=== PATIENT | female | born 1985 | race Caucasian/White ===

== ENCOUNTER 2017-10-16 21:24 | Emergency (ER) | payer MEDICAID ==
[~2017-10-16] VITALS: Ht 154.9 cm; Wt 68.0 kg
[2017-10-17] MEDS ORDERED: ACETAMINOPHEN 500MG TABLET PO ONE (00:30)
[2017-10-17 00:55] LABS: BASOPHILS % 0.3 % (0.0-2.0); EOSINOPHILS % 2.1 % (0.0-5.0); HEMATOCRIT. 40.7 % (36.0-48.0); HEMOGLOBIN. 13.4 g/dL (12.0-16.0); LYMPHOCYTES % 12.5 % (20.0-50.0); MEAN CORPUSCULAR HEMOGLOBIN 28.2 pg (28.0-32.0); MEAN CORPUSCULAR VOLUME 85.5 fL (81.0-99.0); MEAN PLATELET VOLUME 8.6 fl (7.4-10.4); MONOCYTES % 5.3 % (2.0-8.0); NEUTROPHILS % 79.8 % (40.0-76.0); PLATELET 220 x1000/uL (130-400); RED BLOOD CELL COUNT 4.76 mill/uL (4.2-5.4); RED CELL DISTRIBUTION WIDTH 14.8 % (11.6-14.6)
[2017-10-17 02:30] VITALS: BP 118/68
== END 2017-10-17 03:14 | disposition home or self-care (01) ==
LOC: ER 21:24
DX: K64.9 Unspecified hemorrhoids (principal)
CPT/HCPCS: 36415; 85025; 99283

== ENCOUNTER 2019-03-17 23:58 | Emergency (ER) | payer MEDICAID ==
[~2019-03-17] VITALS: Ht 165.1 cm; Wt 67.0 kg
[2019-03-18] MEDS ORDERED: VISCOUS LIDOCAINE 2% 15 ML UDC MM STA (02:46)
[2019-03-18 04:43] VITALS: BP 130/70
== END 2019-03-18 04:43 | disposition home or self-care (01) ==
LOC: ER 23:58
DX: J02.9 Acute pharyngitis, unspecified (principal); Z98.890 Other specified postprocedural states
CPT/HCPCS: 87070; 87430; 99283

== ENCOUNTER 2020-04-01 19:04 | Emergency (ER) | payer MEDICAID ==
[~2020-04-01] VITALS: Ht 154.9 cm; Wt 73.0 kg
[2020-04-01 19:07] VITALS: BP 125/71
[2020-04-01] MEDS ORDERED: ERYTHROMYCIN BASE 0.5% OPHTH OINT 3.5GM LEFTEYE ONE (21:30)
[2020-04-01] MEDS ORDERED: FLUORESCEIN SODIUM 1MG/STRIP LEFTEYE ONE (21:30)
[2020-04-01] MEDS ORDERED: TETRACAINE 0.5% OPHTH DROPS 4ML LEFTEYE ONE (21:30)
== END 2020-04-01 22:55 | disposition home or self-care (01) ==
LOC: ER 19:04
DX: S00.31XA Abrasion of nose, initial encounter (principal); S05.02XA Injury of conjunctiva and corneal abrasion without foreign body, left eye, initial encounter; X58.XXXA Exposure to other specified factors, initial encounter; Y93.89 Activity, other specified; Y92.89 Other specified places as the place of occurrence of the external cause; Y99.8 Other external cause status
CPT/HCPCS: 99283

== ENCOUNTER 2022-02-25 21:12 | Emergency (ER) | payer MEDICAID ==
[~2022-02-25] VITALS: Ht 157.5 cm; Wt 74.3 kg
[2022-02-25 21:38] VITALS: BP 103/67
[2022-02-25] MEDS ORDERED: TOPUD PO (23:04)
== END 2022-02-25 23:32 | disposition home or self-care (01) ==
LOC: ER 21:12
DX: B34.9 Viral infection, unspecified (principal); Z20.822 Contact with and (suspected) exposure to COVID-19; Z98.890 Other specified postprocedural states
CPT/HCPCS: 71045; 87426; 87804; 99284; C9803